=== PATIENT | male | born 1955 | race Caucasian/White ===

== ENCOUNTER → 2018-02-10 | Outpatient (CLI) | payer BC, OTHER ==
[~2018-02-10] VITALS: Ht 182.9 cm; Wt 83.9 kg
[~2018-02-10] MED LIST: AMITRIPTYLINE H10 M1 PO; SINGULAIR 10 MG10 M1 PO; VENTOLIN HFA 1818 GM INH
--- NOTE | ~2018-02-10 | CATHLAB ---
[facility] [address] [place] [address] INVASIVE PROCEDURE REPORT Name: Tessy RAHMAN LIZBET Room #: [facility] [id number] Admission: 02/10/18 Attend Phys: Rufino Jackson, Discharge: Date of : 51 Date of Service: 04/08/181855 Report #: [id number] THIS REPORT FOR: //name// CC: Rufino Powers STUDY: Tilt table test. The patient underwent by protocol tilt table testing for some recurrent syncope and vertiginous symptoms. Orthostatic blood pressures were obtained prior. Subtle drop in blood pressure, but no change in heart rate. The patient was then administered tilt table testing at 70 degrees upright. He was monitored for 37 minutes. He was supplemented with sublingual nitrospray given at 15 minutes. Some subtle drop in blood pressure was noted. Heart rate remained stable. Developed symptoms of lightheadedness approximately 3 minutes into this. Lowest blood pressure obtained was 62/36 with a pulse of 60s. No significant change in heart rate and blood pressure did spontaneously improve. He felt warm and near syncopal, but no syncope was reproduced. IMPRESSION: Tilt table testing exhibited a normal physiologic response. No reproduction of meme syncope. There was moderate vasodepressor response noted with a decreased blood pressure, but no significant change in heart rate. Recommend clinical correlation. By: 55 [id number] Rufino Jackson MD, FACC /nt
== END | disposition home or self-care (01) ==
LOC: CATH 01-27 08:06
DX: R55 Syncope and collapse (principal); Z88.0 Allergy status to penicillin; Z88.2 Allergy status to sulfonamides; Z79.899 Other long term (current) drug therapy